=== PATIENT | female | born 1970 | race Caucasian/White ===

== ENCOUNTER 2018-11-09 13:09 | Emergency (ER) | payer BC, OTHER ==
[~2018-11-09] VITALS: Ht 160 cm; Wt 83.9 kg
[~2018-11-09 13:09] MED LIST: ALBUTEROL2.5 MG/0.1 INH; BELVIQ10 MG PO; CIPROFLOXACIN500 M1 PO; FLEXERIL PO; GLUCOSAMINE HC500 MG PO; HCTZ; HYDROCHLOROTHIA25 M2 PO; HYDROCODON-ACE1 EAC7 PO; LISINOPRIL20 MG PO; MEDROLDOSEPACK PO; NAPROSYN500 MG PO; NORCO 5-325 TA1 EAC1 PO; NORCO 5-325 TA1 EACH PO; NORVASC; NORVASC2.5 MG; ONDANSETRON HCL4 M2 PO; PERCOCET 5-3251 EACH PO; POTASSIUM20; POTASSIUM20 PO; PREDNISONE50 MG PO; PROMETHAZINE-C120 ML PO; PYRIDIUM200 M2 PO; ZESTORETIC 20-1 EAC2; ZPAK PO
[2018-11-09] MEDS ORDERED: NAPROSYN500 MG PO (13:57)
[2018-11-09] MEDS ORDERED: FLEXERIL PO (13:57)
[2018-11-09] MEDS ORDERED: NORCO 5-325 TA1 EACH PO (13:57)
[2018-11-09 14:42] VITALS: BP 133/80
== END 2018-11-09 14:42 | disposition home or self-care (01) ==
LOC: M.ERS 13:09
DX: S39.012A Strain of muscle, fascia and tendon of lower back, initial encounter (principal); M25.552 Pain in left hip; I10 Essential (primary) hypertension; Z98.890 Other specified postprocedural states; X50.9XXA Other and unspecified overexertion or strenuous movements or postures, initial encounter; Y93.H1 Activity, digging, shoveling and raking; Y92.89 Other specified places as the place of occurrence of the external cause; Y99.8 Other external cause status